=== PATIENT | female | born 1965 | race Caucasian/White ===

== ENCOUNTER → 2024-01-18 | Outpatient (CLI) | payer OTHER, SELFPAY ==
--- NOTE | 2024-01-18 12:58 | US_ITS ---
EXAM: US SOFT TISSUES HEAD AND NECK, THYROID CLINICAL INDICATION: NODULE MONITORING TECHNIQUE: Garvin scale and color doppler imaging was performed of the thyroid gland. COMPARISON: No relevant prior studies available. FINDINGS: LEFT THYROID LOBE: Left thyroid lobe measures 4.2 x 1.6 x 1.4 cm with mildly heterogeneous echotexture. Posterior 6 mm nodule is noted. TI-RADS points: 3. TI-RADS category: TR3. This nodule is mildly suspicious but no FNA or follow-up is necessary given the small size of this nodule. RIGHT THYROID LOBE: Right thyroid lobe measures 4.9 x 1.5 x 1.5 cm with somewhat heterogeneous echogenicity. There are 3 subcentimeter nodules which are solid in nature, isoechoic, well-defined, wider than tall and without microcalcification. TI-RADS points: 3. TI-RADS category: TR3. These nodules are mildly suspicious but no FNA or follow-up is necessary given the small size of the nodules. ISTHMUS: Isthmus measures 1.2 mm in AP dimension. No thyroid nodules are present. US/Thyroid IMPRESSION: Small bilateral thyroid nodules as described above. Electronically Signed: Albert Lehman MD at 10:51 EDT ,
== END | disposition home or self-care (01) ==
LOC: US 12:55
DX: E04.1 Nontoxic single thyroid nodule (principal)
CPT/HCPCS: 76536

== ENCOUNTER 2025-02-01 18:37 | Emergency (ER) | payer OTHER, SELFPAY ==
[2025-02-01 18:37] VITALS: BP 146/94; PULSE 86; RESP 19; TEMP 36.5; O2SAT 98; BMI 25.1
[2025-02-01] MEDS: Diphth,Pertuss(Acell),Tet Vac 0.5 ML Vial IM (19:50)
--- NOTE | 2025-02-01 19:51 | EX.ED.VISEXT ---
HPI History of Present Illness Chief Complaint: Bite Informant: patient Narrative Narrative: 59-year-old female presenting to the emergency room for evaluation of cat bite to the right wrist. Patient states that she has been caring for a stray since November. The cat bit her in the right wrist on . She notes bruising and swelling. She states her primary care doctor called her and advised her to come to emergency for antibiotics and a tetanus shot. No drainage from the wound no red streaking no fevers. Tetanus Immunization: Unknown ROS ROS ED Constitutional Constitutional ED: Denies chills or weight loss Eyes Eyes: Denies change in vision or diplopia ENT ENT ED: Denies ear pain, rhinorrhea or sore throat Cardiovascular Cardiovascular: Denies chest pain, orthopnea, palpitations or racing heartbeat Respiratory/Chest Respiratory/Chest: Denies cough, dyspnea or orthopnea Gastrointestinal Gastrointestinal: Denies abdominal pain, diarrhea, nausea or vomiting Genitourinary Genitourinary ED: Denies dysuria, hematuria or urinary frequency Musculoskeletal Musculoskeletal: Denies arthralgias or myalgias Integumentary Reports other Details: See history of present illness ; Denies abscess or rash Neurologic Neurologic: Denies headache(s) or weakness Psychiatric Psychiatric: Denies anxiety, depression, suicidal ideation or suicidal thoughts Endocrine Endocrinology: Denies polydipsia, polyphagia or polyuria Allergic/Immunologic Allergic/Immunologic ED: Denies mouth swelling, tongue swelling or urticaria PFSH PFSH Medical History no medical history Home Medications ?Medication ?Instructions ?Recorded ?Last Taken ?Type amoxicillin 875 mg-potassium 875 mg PO Q12H #14 TABLETS 02/01/25 Unknown Rx clavulanate 125 mg tablet Allergy/AdvReac Type Severity Reaction Status Date / Time No Known Allergies Allergy Verified 02/01/25 18:37 Family History no significant family his Surgical History no surgical history Social History Smoking Status: Former smoker EXAM Physical Exam Const Vital Signs: 02/01/25 18:37 Temperature 97.7 F L Temperature Source Temporal Pulse Rate 86 Respiratory Rate 19 H Blood Pressure 146/94 H Blood Pressure Mean 111 Pulse Ox 98 Oxygen Delivery Method Room Air Positive well nourished and well developed General Appearance ED: well developed and NAD HEENT Reports normocephalic, head/scalp atraumatic and moist mucous membranes Eyes PERRL and EOMs intact bilaterally Neck no lymphadenopathy, supple and no JVD Resp normal respiratory effort and clear to auscultation bilaterally Cardio regular rate, regular rhythm and no murmurs GI normal to inspection, nondistended, normoactive bowel sounds and non-tender Palpation: soft Back/Spine no CVA tenderness and normal ROM Extremity Extremity Narrative: Medial right wrist demonstrates an area of ecchymosis. There are couple abrasions in the center of the ecchymosis that appear to be puncture sites. There is an underlying hematoma. I do not appreciate any erythema increased warmth streaking or drainage. Neurovascularly and tendon function appear normal. General Extremety ED: Negative for edema General Extremity: Negative for edema Neuro oriented x3 and CN's II-XII intact bilaterally Sensorium / Orientation: alert Motor Exam: strength 5/5 throughout Psych mental status grossly normal Mood & Affect: Negative for depressed or tearful Skin no rashes or lesions noted and no wounds MDM MDM MDM Narrative Medical decision making narrative: Differential diagnosis includes but not limited to nerve vascular injury tendon injury cellulitis abscess lymphangitis Explained to the patient this looks like ecchymosis and hematoma. I do not see evidence of infection at this time. Injury is just over 48 hours old I would suspect that if this was to be infected it should be sitting and by now. Patient would like her tetanus updated be placed on antibiotics which I do not think is unreasonable. Patient to perform local wound care return if worsening or concerns History & Record Review Discussion w/independent historian: Patient Discharge Plan Triage Chief Complaint: Bite ED Provider: Endy Nuñez Dx/Rx/DC Orders Clinical Impression: Cat bite, Hematoma of right wrist Instructions: Bruises (Contusions), ED Cat Bite Prescriptions: New amoxicillin-pot clavulanate 875-125 mg tablet 875 mg PO Q12H Qty: 14 0RF Primary Care Provider: EMY QUINN Referrals: EMY QUINN [Other] - As Needed Print Language: Portuguese Disposition Disposition: Home, Self Care
--- OUTSIDE RECORDS SUMMARY | 2025-02-01 20:02 | XMS RPT_ITS | CCD ---
Author Organization [facility] Inform ion Partnership [facility] Care Team Providers Care Refractive Surgeon Name Role Phone Camilo Rivas Primary Care Provider [phone] Francisco Montelongo (Hist) Primary Care Provider Un available JERSON, NATHALIE Referring Unavailable JERSON, NATHALIE Attending Unavailable JERSON, NATHALIE Primary Care Unavailable Allergies Allergy Classification Reported Allergen(s) Allergy Type Date of Onset Reaction(s) Facility Unclassified (1 source) Homeopathic Products Propensity to adverse reactions 0 Intolerance, Itching [facility] Medications Completed/Discontinued Medications Medication Drug Class(es) Dates Sig (Normalized) Sig (Original) ascorbic acid 500 mg chewable tablet (1 source) Vitamin C Start: 10-28-2010 take 1 tablet by mouth once daily Ascorbic Acid (VITAMIN C) ORAL Chew Take 1 tablet by mouth once daily. 0 10/28/2010 Active Comment on above: Take 1 tablet by adele th once daily. biotin 2.5 mg oral capsule (1 source) Start: 10-28-2010 Biotin 2,500 mcg ORAL Cap Take by mouth. 0 10/28/2010 Active Comment on above: Take by mouth. Pduriyj-Ava-Dfz Q5-R2-Hxwbcnwq (CALCIUM CITRATE + D WITH MAG) 730-24-6-125 xg-he-jt-unit ORAL Tab (1 source) Start: 10-28-2010 take 2 tablets by mouth twice daily Mpdrwcg-Top-Sxo V9-L5-Wsuxwhpm (CALCIUM CITRATE + D WITH MAG) 783-85-5-125 md-ua-nv-unit ORAL Tab Take by mouth. Two tablets twice daily 0 10/28/2010 Active Comment on above: Take by mouth. Two t ablets twice daily fexofenadine hydrochloride 180 mg oral tablet (1 source) Histamine-1 Receptor Antagonist Start: 08-12-2010 End: 01-19-2011 take 1 tablet by mouth once daily fexofenadine (ROSE MARIE) 180 mg ORAL tablet Take one(1) tablet daily. 30 Tab 5 08/12/2010 01/19/2011 Discontinued (Course of therapy completed) Comment on above: Take one(1) tablet d aily. 24 hr oxybutynin chloride 10 mg extended release oral tablet (1 source) Cholinergic Muscarinic Antagonist Start: 08-07-2010 End: 01-19-2011 take 1 tablet by mouth once daily oxybutynin XL (DITROPAN XL) 10 mg ORAL 24 hr tablet Take one(1) tablet daily. 30 Tab 5 08/07/2010 01/19/2011 Discontinued (Dosage adjustment) Comment on above: Take one(1) tablet d aily. Pediatric Multivitamins-Iron (FLINTSTONES COMPLETE) ORAL chewable tablet (1 source) Start: 10-28-2010 take 2 tablets by mouth once daily Pediatric Multivitamins-Iron (FLINTSTONES COMPLETE) ORAL chewable tablet Take by mouth. Two tablets daily 0 10/28/2010 Active Comment on above: Take by mouth. Two t ablets daily traZODone hydrochloride 100 mg oral tablet (1 source) Serotonin Reuptake Inhibitor Start: 08-07-2010 End: 09-22-2011 take 1 tablet by mouth 1 hour(s) before bedtime traZODONE 100 mg ORAL tablet Take one tablet 1 hr before bedtime. 30 Tab 5 08/07/2010 09/22/2011 Discontinued (Discontinued by Patient) Comment on above: Take one tablet 1 hr before bedtime. varenicline 1 mg oral tablet (1 source) Partial Cholinergic Nicotinic Agonist Start: 10-14-2010 End: 01-12-2011 take 1 tablet by mouth once daily varenicline 1 mg ORAL tablet Take one(1) tablet two(2) times daily. 60 tablet 2 10/14/2010 01/12/2011 Discontinued Comment on above: Take one(1) tablet t wo(2) times daily. vitamin b12 1 mg sublingual tablet (1 source) Vitamin B12 Start: 10-28-2010 Cyanocobalamin (VITAMIN B-12) 1,000 mcg SUBLINGUAL Subl Dissolve under the tongue. Once daily 0 10/28/2010 Active Comment on above: Dissolve under the t ongue. Once daily Problems Active Problems Problem Classification Problem Date Documented Da te Episodic/Chronic Anxiety disorders (1 source) Anxiety; Translations: [Anxiety disorder, unspecified] Onset: 07-16-2012 07-16-2012 Chronic Asthma (1 source) Unspecified asthma, uncomplicated; Translations: [Asthma, unspecified type, unspecified] Onset: 03-23-2007 10-09-2009 Chronic Disorders of lipid metabolism (1 source) Hyperlipidemia; Translations: [Hyperlipidemia, unspecified] Onset: 05-04-2007 10-09-2009 Chronic Essential hypertension (1 source) Essential hypertension; Translations: [Essential (primary) hypertension] Onset: 03-23-2007 10-09-2009 Chronic Genitourinary symptoms and ill-defined conditions (1 source) Incontinence; Translations: [Unspecified urinary incontinence] Onset: 08-07-2010 08-10-2010 Chronic Mood disorders (1 source) Depressive disorder; Translations: [Major depressive disorder, single episode, unspecified] Onset: 07-16-2012 07-16-2012 Chronic Nutritional deficiencies (1 source) Vitamin D deficiency; Translations: [Vitamin D deficiency, unspecified] Onset: 12-01-2010 12-01-2010 Chronic Other liver diseases (1 source) Steatosis of liver; Translations: [Fatty (change of) liver, not elsewhere classified] Onset: 10-28-2010 10-28-2010 Chronic Other nutritional; endocrine; and metabolic disorders (1 source) Obesity; Translations: [Obesity, unspecified] Onset: 03-23-2007 10-09-2009 Chronic Other nutritional; endocrine; and metabolic disorders (1 source) Morbid obesity; Translations: [Morbid (severe) obesity due to excess calories] Onset: 10-28-2010 10-28-2010 Chronic Other upper respiratory infections (1 source) Chronic sinusitis; Translations: [Chronic sinusitis, unspecified] Onset: 10-09-2009 08-10-2010 Chronic Residual codes; unclassified (1 source) Obstructive sleep apnea syndrome; Translations: [Obstructive sleep apnea (adult) (pediatric)] Onset: 12-01-2010 12-01-2010 Chronic Spondylosis; intervertebral disc disorders; other back problems (1 source) Lumbar spondylosis; Translations: [Spondylosis without myelopathy or radiculopathy, lumbar region] Onset: 01-24-2014 01-24-2014 Chronic Substance-related disorders (1 source) Tobacco user; Translations: [Nicotine dependence, unspecified, uncomplicated] Onset: 03-23-2007 10-09-2009 Chronic Thyroid disorders (2 sources) Multinodular goiter; Translations: [Nontoxic multinodular goiter] Onset: 03-07-2014 03-07-2014 Chronic Past or Other Problems Problem Classification Problem Date Documented Da te Episodic/Chronic Other gastrointestinal disorders (1 source) History of bypass of stomach; Translations: [Bariatric surgery status] Onset: 10-06-2011 10-06-2011 Episodic Other lower respiratory disease (1 source) Snoring; Translations: [Snoring] Onset: 10-28-2010 10-28-2010 Episodic Other lower respiratory disease (1 source) Hypoxemia; Translations: [Hypoxemia] Onset: 02-23-2011 02-23-2011 Episodic Residual codes; unclassified (1 source) Insomnia; Translations: [Insomnia, unspecified] Onset: 10-09-2009 08-10-2010 Episodic Spondylosis; intervertebral disc disorders; other back problems (1 source) Lumbosacral radiculopathy; Translations: [Radiculopathy, lumbosacral region] Onset: 02-15-2013 02-15-2013 Episodic Results Test Name Value Interpretation Reference Range Facil ity Thyroidon 01-18-2024 Thyroid [facility] [address] [place] [address] [id number] Thyroid MR#: [id number] Acct: [id number] Name: VLAD GARCIA Rep #: [id number] : 1965 F 58 From: Albert Lehman MD PCP: EMY QUINN Status: REG CLI Study: Thyroid Date of Exam: 01/18/24 Exam# [id number] Ordering Dr: EMY QUINN [id number] EXAM: US SOFT TISSUES HEAD AND NECK, THYROID CLINICAL INDICATION: NODULE MONITORING TECHNIQUE: Garvin scale and color doppler imaging was performed of the thyroid gland. COMPARISON: No relevant prior studies available. FINDINGS: LEFT THYROID LOBE: Left thyroid lobe measures 4.2 x 1.6 x 1.4 cm with mildly heterogeneous echotexture. Posterior 6 mm nodule is noted. TI-RADS points: 3. TI-RADS category: TR3. This nodule is mildly suspicious but no FNA or follow-up is necessary given the small size of this nodule. RIGHT THYROID LOBE: Right thyroid lobe measures 4.9 x 1.5 x 1.5 cm with somewhat heterogeneous echogenicity. There are 3 subcentimeter nodules which are solid in nature, isoechoic, well-defined, wider than tall and without microcalcification. TI-RADS points: 3. TI-RADS category: TR3. These nodules are mildly suspicious but no FNA or follow-up is necessary given the small size of the nodules. ISTHMUS: Isthmus measures 1.2 mm in AP dimension. No thyroid nodules are present. US/Thyroid IMPRESSION: Small bilateral thyroid nodules as described above. Electronically Signed: Albert Lehman MD at 10:51 EDT , CC: EMY QUINN [employer]er: Signed Normal [facility] Encounters Encounter Date Encounter Type Care Provider Facility Start: 01-18-2024 End: 01-18-2024 ambulatory NATHALIE JERSON Facility:[facility] Start: 11-30-2010 End: 11-30-2010 REFILL - MYCHART Desmond Anderson Work Phone: Family Medicine Comment on above: Medication Renewal R equest Procedures Date Procedure Procedure Detail Performing Clinician Start: 03-04-2014 Mammography Desmond schultz Work Phone: Plan of Treatment Date Care Activity Detail Author Start: 04-21-2021 Influenza vaccination INFLUENZA (Sea son Ended) [facility] Start: 02-03-2019 LIPID SCREEN LIPID SCREEN [facility] Start: 12-25-2018 Urine microalbumin profile DTAP,TDAP ,TD (3 - Tdap) [facility] Start: 03-06-2017 HPV TESTING HPV TESTING [facility] Start: 03-06-2017 PAP TESTING PAP TESTING [facility] Start: 02-03-2017 DIABETES SCREEN DIABETES SCREEN [facility] Start: 2016 Screening for malign ant neoplasm of colon [facility] Start: 2016 SHINGRIX VACCINE (1 of 2) THOMPSON GRIX VACCINE (1 of 2) [facility] Start: 03-04-2015 Mammography MAMMOGRAM [facility] Start: 1978 Adult depression scr eening assessment DEPRESSION SCREENING [facility] Immunizations Immunization Date Immunization Notes Care Provider Grabiel gaona 12-25-2008 diphtheria, tetanus toxoids and acellular pertussis vaccine Desmond Anderson Work Phone: [facility] 04-04-2001 diphtheria and tetan us toxoids, adsorbed for pediatric use Desmond [facility] Work Phone: [facility] Payers Date Payer Category Payer Self-pay 2023 Unknown [id number] 2006 Unknown [employer] FEP PPO [id number] 2006-Present PPO [id number] Unknown [id number] Social History Date Type Detail Facility Start: 08-07-2010 Tobacco smoking stat us IDIS Former smoker [facility] End: 07-21-2010 History of tobacco use Current smoker [facility] Work Phone: End: 07-21-2010 History of tobacco use Cigarette Smoker [facility] Work Phone: Start: 08-07-2010 Cigarettes smoked current (pack per day) - Reported [facility] Start: 08-07-2010 Alcohol intake Current drinke r of alcohol (finding) [facility] Start: 03-09-2010 Alcohol Comment [facility] Start: 1965 Sex Assigned At Not on file [facility] History of Past illness Narrative 08-22-2008 Note Date & Type Note Facility 08-22-2008 History of Past i llness Narrative Problem Noted Date Resolved Date Neoplasm of uncertain behavior of skin 9 10/09/2009 documented as of this encounter (statuses as of 12/09/2020) [facility] Summary Purpose Family History No Family History Records Found Advance Directives No Advanced Directives Records Found Additional Source Comments Source Comments (unrecognize d section and content) In the event this informatio n is protected by the Federal Confidentiality of Alcohol and Drug Abuse Patient Records regulations: The Federal rules restrict any use of the information to criminally investigate or prosecute any alcohol or drug abuse patient.[facility] Reason for Visit (unrecogniz ed section and content) Reason Onset Date Comments Refill Request 11/30/2010 INFORMATION SOURCE (unrecogn ized section and content) DATE CREATED AUTHOR 01/27/2024 [facility] FOR RECORDS PERTAINING TO PATIENTS WHO ARE OR HAVE BEEN ENROLLED IN A CHEMICAL DEPENDENCY/SUBSTANCEABUSE PROGRAM, SOME INFORMATION MAY BE OMITTED. This clinical summary was aggregated from multiple sources. Caution should be exercised in using it in the provision of clinical care. This summary normalizes information from multiple sources, and as a consequence, information in this document may materially change the coding, format and clinical context of patient data. In addition, data may be omitted in some cases. CLINICAL DECISIONS SHOULD BE BASED ON THE PRIMARY CLINICAL RECORDS. [employer] provides no warranty or guarantee of the accuracy or completeness of information in this document.
--- NOTE | 2025-02-01 20:26 | ED.RN ---
pt is asking for RX to be sent to [facility] d/t [facility] coverage not being available at this time. Notified Dr Nuñez
== END 2025-02-01 20:39 | disposition home or self-care (01) ==
PROVIDERS: Emergency Provider Emergency Medicine; Visit Provider Emergency Medicine
DX: S60.871A Other superficial bite of right wrist, initial encounter (principal); S60.211A Contusion of right wrist, initial encounter; W55.01XA Bitten by cat, initial encounter; Z87.891 Personal history of nicotine dependence; Z23 Encounter for immunization
CPT/HCPCS: 90471; 90715; 99282